=== PATIENT | male | born 2005 | race Caucasian/White ===

== ENCOUNTER → 2023-06-06 | Emergency (ER) | payer OTHER, SELFPAY ==
--- NOTE | 2023-06-06 19:29 | ER ---
[facility]urse[facility] Name: J Luis Sanchez Age: 18 yrs Sex: Male : 2005 Arrival Date: 06/06/2023 Time: 17:54 Bed IW1 Private MD: Diagnosis: Acute tonsillitis, unspecified Presentation: 06/05 18:00 Chief complaint: Sore throat, cough, congestion, and fever x 4 days. Coronavirus hb screen: Client presents with at least one sign or symptom that may indicate coronavirus-19. Provider contacted for isolation considerations. Ebola Screen: No symptoms or risks identified at this time. Initial Sepsis Screen: Does the patient meet any 2 criteria? HR > 90 bpm. No. Patient's initial sepsis screen is negative. Does the patient have a suspected source of infection? No. Patient's initial sepsis screen is negative. Risk Assessment: Do you want to hurt yourself or someone else? Patient reports no desire to harm self or others. Onset of symptoms was June 02, 2023. 18:00 Method Of Arrival: Ambulatory hb 18:00 Acuity: ALLYSON 4 hb Triage Assessment: 18:02 General: Appears in no apparent distress. Behavior is calm, cooperative. Pain: Pain hb currently is 7 out of 10 on a pain scale. EENT: Reports sore throat. Neuro: Level of Consciousness is awake, alert, obeys commands, Oriented to person, place, time, situation. Cardiovascular: Patient's skin is warm and dry. Respiratory: Respiratory effort is even, unlabored, Respiratory pattern is regular, symmetrical. 18:03 Respiratory: Reports cough that is. hb Historical: - Allergies: 18:02 No Known Allergies; hb - Home Meds: 18:02 None [Active]; hb - PMHx: 18:02 Depression; hb - PSHx: 18:02 None; hb - Immunization history:: Adult Immunizations up to date. - Social history:: Smoking status: Patient denies any tobacco usage or history of. Screenin:39 [facility] ED Fall Risk Assessment (Adult) History of falling in the last 3 months, cm10 including since admission No falls in past 3 months (0 pts) Confusion or Disorientation No (0 pts) Intoxicated or Sedated No (0 pts) Impaired Gait No (0 pts) Mobility Assist Device Used No (0 pt) Altered Elimination No (0 pt) Score/Fall Risk Level 0 - 2 = Low Risk Oriented to surroundings, Maintained a safe environment, Hourly rounding (assess needs \T\ fall precautionary measures) done. Abuse screen: Denies threats or abuse. Denies injuries from another. Nutritional screening: No deficits noted. Tuberculosis screening: No symptoms or risk factors identified. Vital Signs: 18:00 BP 133 / 93; Pulse 100; Resp 16; Temp 98.4(TE); Pulse Ox 100% on R/A; Weight 65.77 kg; hb Height 6 ft. 0 in. ; Pain 7/10; 18:00 Body Mass Index 19.67 (65.77 kg, 182.88 cm) hb 18:00 Pain Scale: Adult hb ED Course: 17:58 Patient arrived in ED. ae5 17:58 Dolores Cline FNP-C is [facility]. kb 17:58 Stewart Alexandre MD is Attending Physician. kb 18:02 Triage completed. hb 18:02 Arm band placed on. hb 18:09 Strep Sent. hb 18:09 COVID-19 SARS RT PCR Sent. hb 18:09 Flu Sent. hb 19:39 Patient has correct armband on for positive identification. Provided Education on: cm10 Follow-up instructions. 19:39 No provider procedures requiring assistance completed. Patient did not have IV access cm10 during this emergency room visit. Administered Medications: No medications were administered Medication: 19:39 VIS not applicable for this client. cm10 Outcome: 19:29 Discharge ordered by MD. kb 19:39 Discharged to home ambulatory, cm10 19:39 Condition: good 19:39 Discharge instructions given to patient, Instructed on discharge instructions, follow up and referral plans. medication usage, Demonstrated understanding of instructions, follow-up care, medications, Prescriptions given X 1, 19:40 Patient left the ED. cm10 Signatures: Dolores Cline FNP-C FNP-Ckb Baxter, Heather, RN RN hb Martinez, Clarissa, RN RN cm10 Espinosa, Alexia ae5 Corrections: (The following items were deleted from the chart) 18:03 18:02 Neuro: Level of Consciousness is awake, alert, obeys commands, Oriented to hb person, place, time, situation, hb
--- NOTE | 2023-06-06 19:29 | EDPHYS ---
Physician Documentation [facility] Name: J Luis Sanchez Age: 18 yrs Sex: Male : 2005 Arrival Date: 06/06/2023 Time: 17:54 Bed IW1 Private MD: ED Physician Stewart Alexandre HPI: 06/05 19:29 This 18 yrs old Male presents to ER via Ambulatory with complaints of Cough, Chest kb Congestion. 19:29 Patient is a 18-year-old male who presents for cough, congestion, sore throat and fever kb for 4 days. Denies chest pain or shortness of breath. States this happens about once a year due to his tonsils.. Historical: - Allergies: 18:02 No Known Allergies; hb - Home Meds: 18:02 None [Active]; hb - PMHx: 18:02 Depression; hb - PSHx: 18:02 None; hb - Immunization history:: Adult Immunizations up to date. - Social history:: Smoking status: Patient denies any tobacco usage or history of. ROS: 19:29 Constitutional: As per HPI kb Exam: 19:29 Constitutional: This is a well developed, well nourished patient who is awake, alert, kb and in no acute distress. Head/Face: Normocephalic, atraumatic. Cardiovascular: Regular rate Respiratory: Respirations even and unlabored. No increased work of breathing. Talking in full sentences Abdomen/GI: Soft, non-tender. No distention Skin: Warm, dry with normal turgor. Normal color. MS/ Extremity: Pulses equal, no cyanosis. Neurovascular intact. Full, normal range of motion. Neuro: Awake and alert, GCS 15, oriented to person, place, time, and situation. Moves all extremities. Normal gait. 19:29 ENT: Posterior pharynx: Airway: normal, no evidence of obstruction, Tonsils: bilaterally enlarged, with erythema, Uvula: normal, midline, Vital Signs: 18:00 BP 133 / 93; Pulse 100; Resp 16; Temp 98.4(TE); Pulse Ox 100% on R/A; Weight 65.77 kg; hb Height 6 ft. 0 in. ; Pain 7/10; 18:00 Body Mass Index 19.67 (65.77 kg, 182.88 cm) hb 18:00 Pain Scale: Adult hb MDM: 17:58 Patient medically screened. kb 19:30 Differential Diagnosis: Other Tonsillitis, strep, flu, COVID, URI. Data reviewed: vital kb signs, nurses notes. Counseling: I had a detailed discussion with the patient and/or guardian regarding the historical points, exam findings, and any diagnostic results supporting the discharge/admit diagnosis, lab results, the need for outpatient follow up, a family practitioner, to return to the emergency department if symptoms worsen or persist or if there are any questions or concerns that arise at home. 06/05 18:02 Order name: Flu; Complete Time: 18:36 kb 06/05 18:02 Order name: COVID-19 SARS RT PCR; Complete Time: 18:51 kb 06/05 18:02 Order name: Strep; Complete Time: 18:36 kb 06/05 18:35 Order name: Throat Culture EDMS Administered Medications: No medications were administered Disposition Summary: 06/06/23 19:29 Discharge Ordered Notes: Location: Home kb Condition: Stable kb Diagnosis - Acute tonsillitis, unspecified kb Followup: kb - With: Private Physician - When: 2 - 3 days - Reason: Recheck today's complaints, Continuance of care, Re-evaluation by your physician Followup: kb - With: Emergency Department - When: As needed - Reason: Worsening of condition Discharge Instructions: - Discharge Summary Sheet kb - Tonsillitis, Wawq-ko-Ahdw kb Forms: - Medication Reconciliation Form kb - Thank You Letter kb - Antibiotic Education kb - Prescription Opioid Use kb - Patient Portal Instructions kb - Leadership Thank You Letter kb - Work release form cm10 Prescriptions: - Amoxicillin 875 mg Oral Tablet - take 1 tablet ORAL route every 12 hours for 10 days; 20 tablet; Refills: 0, kb Product Selection Permitted Signatures: Dispatcher [employer] EDDolores Alcantar, PAUL RUTLEDGE-Tameka Pablo, RN RN hb
[2023-06-06 19:53] VITALS: BP 133/93; TEMP 98.4; O2SAT 100
== END ==
LOC: ER 17:54
DX: J03.90 Acute tonsillitis, unspecified (principal); Z11.52 Encounter for screening for COVID-19
CPT/HCPCS: 87070; 87081; 87635; 87804

== ENCOUNTER 2023-09-15 23:43 | Emergency (ER) | payer SELFPAY ==
--- OUTSIDE RECORDS SUMMARY | 2023-09-15 23:45 | XMS REPORT | Continuity of Care Document ---
Author Name Unknown Address [address] [facility] [address] [place] [address] [facility] Address [address] [facility] [address] [place] [address] Care Team Providers Care Compliance Lead Name Role Phone NO, PCP Primary Care Physician Unavailab aMggi Newman MD Attending Clinician SERGIO YAN Attending Clinician Unavailable Sami Curiel Attending Clinician UnavailMAGGI Skelton Attending Clinician Unavailable Alonso Attending Clinician Unavailable SERGIO YAN Admitting Clinician Unavailable Alonso Admitting Clinician Unavailable Payers Payer Name Policy Type Policy Number Effective Date Expirati on Date Source 22 C [id number] BCBS [facility] OUT [facility] STATE [id number] 2019 00:00:00 [place] [facility] [id number] 2019 00:00:00 Problems Condition Name Condition Details Condition Category Status Onset Date Resolution Date Last Treatment Date Treating Clinician Comments Source No known active problems No known active problems Disease [facility] Allergies, Adverse Reactions, Alerts Allergy Name Allergy Type Status Severity Reaction(s) Onset Date Inactive Date Treating Clinician Comments Source No Known Allergie s NA Active 10-09 23:40: 23 [facility] No Known Allergie s NA Active 10-06 10:55: 35 [facility] No Known Allergie s NA Active 10-06 10:02: 31 [facility] ([facility]) No Known Allergie s NA Active 10-06 09:21: 42 [facility] ([facility]) sulfamet hoxazole DA Active U Rash 10-12 00:00: 00 [facility] trimetho prim DA Active U Rash 10-12 00:00: 00 [facility] Bee Sting / Venom Propensi ty to adverse reaction s Active Swelling 07-21 00:00: 00 [facility] BEE STING / VENOM DRUG INGREDI Active SOB 07-21 00:00: 00 [facility] NO KNOWN ALLERGIE S Drug Class Active [facility] Social History Social Habit Start Date Stop Date Quantity Comments Source [facility] to SARS-CoV-2 (event) 2021-07-11 00:00:00 2021-07-21 19:29:00 Not sure [facility] Sex assigned at 2005 00:00:00 2005 00:00:00 [facility] Smoking Status Start Date Stop Date Source Current Every Day Smoker [facility] Tobacco smoking consumption unknown [facility] Medications Ordered Medication Name Filled Medication Name Start Date Stop Date Current Medication? Ordering Clinician Indication Dosage Frequency Signature (SIG) Comments Components Source acetaminoph en ES 500 MG TABS acetaminoph en ES 500 MG TABS 10-06 10:06: 00 10-06 10:06 :00 No 500mg medication :acetamino phen ES 500 MG TABS|dose: 500.0 mg|route:O RAL|freque ncy:ONE TIME [facility] ([facility]) sulfamethox azole-trime thoprim 800-160 mg per tablet 07-21 00:00: 00 Yes [id number] 1{tbl} Take 1 tablet by mouth every 12 (twelve) hours. [facility] mupirocin 2 % ointment 07-21 00:00: 00 Yes [id number] Apply to area(s) 3 (three) times daily. [facility] azithromyci n 1 gram oral packet Take 1 packet every day by oral route for 1 day. azithromyci n 1 gram oral packet Take 1 packet every day by oral route for 1 day. No 1packet (s) Q1D azithromyc in 1 gram oral packet Take 1 packet every day by oral route for 1 day. [facility] Vital Signs Vital Name Observation Time Observation Value Comments S ource Systolic blood pressure 2021-07-22 00:32:00 116 mm[Hg] [facility] Diastolic blood pressure 2021-07-22 00:32:00 56 mm[Hg] [facility] Heart rate 2021-07-22 00:32:00 75 /min [facility] Body temperature 2021-07-22 00:32:00 36.78 Kiera [facility] Respiratory rate 2021-07-22 00:32:00 20 /min [facility] Body height 2021-07-22 00:32:00 182.9 cm [facility] Body weight 2021-07-22 00:32:00 68.04 kg [facility] BMI 2021-07-22 00:32:00 20.34 kg/m2 [facility] Body mass index (BMI) [Percentile] Per age and sex 2021-07-22 00:32:00 23.80 % [facility] Oxygen saturation in Arterial blood by Pulse oximetry 2021-07-22 00:32:00 97 /min [facility] BP Systolic 2020-06-12 00:00:00 118 mm[Hg] [facility] Body Weight 2020-06-12 00:00:00 2304 [oz_av] [facility] BP Diastolic 2020-06-12 00:00:00 74 mm[Hg] [facility] Height 2020-06-12 00:00:00 70 [in_i] [facility] BMI (Body Mass Index) 2020-06-12 00:00:00 20.7 kg/m2 [facility] Encounters Start Date/Time End Date/Time Encounter Type Admission Type Attending [facility] Care Facility Care Department Encounter ID Source 2022-09-06 08:57:13 Inpatient SPTP [facility] 627 [facility] 2022-08-16 10:21:28 Inpatient SPTP SPT 07 [facility] 2022-08-14 09:58:18 Inpatient SPTP [facility] 05 [facility] 2022-08-08 12:27:00 Inpatient SPTP [facility] 30 [facility] 2023-07-30 19:52:00 2023-07-30 20:15:00 Emergency Maggi Carney [facility] 1..840.114 [id number] [id number] [id number] [facility] 2022-10-06 14:21:00 2022-10-06 15:55:00 Emergency Department Patient Visit [facility] [id number] 2022-10-06 09:21:00 2022-10-06 10:55:00 Outpatient Encounter 1 YANSERGIO [facility] [id number]. [id number] [facility]) 2021-10-12 14:58:00 2021-10-12 15:19:00 Emergency Emergency TennilleSami shukla [facility] M[facility] [id number] [facility] 2021-07-21 19:35:00 2021-07-21 20:51:00 Emergency X MAGGI CARNEY [facility] ERT [id number] [facility] 2021-07-21 19:35:00 2021-07-21 20:51:00 Emergency Maggi Carney [facility] 1..840.114 350.1.13.10 4.2.7.2.686 [id number] [facility] 2020-06-13 11:18:00 2020-06-13 11:18:00 Outpatient Ruben_Shanice [facility] [id number] [facility] 2020-06-12 05:29:00 2020-06-12 05:29:00 Outpatient Zromy_Shanice [facility] [id number] [facility] 2020-06-12 00:00:00 2020-06-12 00:00:00 Juan Miranda MD: [address] [place] [address] [address], [place] [address] , Ph. [facility] [id number] [facility] Results Test Description Test Time Test Comments Results Resul t Comments Source CHEST 1 VIEW PORTABLE 2022-09-10 8 10:06:00 [facility] : 2005 Sex: M *[address] [address]VWVLVTUEVK IMAGING REPORTPatient Name: J LUIS WILKERSONDate of Service: [id number]: 19 Sex: M Order #: [id number] Room: QERDOB: 2005 X-Ray Number: [id number] Record Number: [id number] Hospital Number: [id number] Physician: Mani YAN Physician: IMELDA CRUZ -CHEST 1 VIEW PORTABLE 10/06/2022 9:57 AMHistory: Cough with feverComparisons: None Available.CHEST:FIND INGS:Heart size is normal.There is no focal lung consolidation.There is no definite pleural effusion or pneumothorax identified.IMPRESSIO N:No acute cardiopulmonary process.Electronical ly Signed By: Vincent Francisco M.D., 10/06/2022 10:03 AMLegally authenticated by NOLAN FIERRO 2022-10-06 10:03:53 Portable XR Chest Views AP 2022-09-10 8 10:03:53 ORDER 200: CHEST 1 VIEW PORTABLE (LOINC: 03248-7)ORDER DATE: October 06, 2022 2:26:00 PM [facility]) Streptococcus pyogenes DNA [Presence] in Stzgnn9270-03-47 10:00:[facility]INFLU[facility]ZA [id number] 09:59:00* Test Item Value Reference Range Interpretation Comme nts FLU A (test code = FLU A) NEGATIVE NEGATIVE FLU B (test code = FLU B) NEGATIVE NEGATIVE FLU INTERNAL POSITIVE CNTRL (test code = FLU IPC) PASS PASS INFLUENZA LOT # (test code = FLULOT) [id number] INFLUENZA EXPIRATION DATE (t est code = FLUEXP) 02-02-2025 Influenza virus A+B Ag [Presence] in Nose by [id number] 09:59:00* Test Item Value Reference Range Interpretation Comme [facility] Reagent Lot number (test cod e = 17739-6) [id number] N Expiration date (test code = 51670-3) 02-02-2025 N [facility])COVID SYMPTOMATIC ER [id number] 09:42:00* Test Item Value Reference Range Interpretation Comme nts CORONAVIRUS (COVID-19)BY PCR (test code = VPU89BYN) NEGATIVE SARS-CoV-2 (COVID-19) N gene [Presence] in Diip9747-45-62 09:42:00[facility] Notes Date/Time Note Provider Source 2023-07-30 19:52:19 7742-55-77Q87:52:19F ormatting of this note might be different from the original.Pt left Ambulatory accompanied by Deputy Turner Badge Number [id number] , AAOX3, gait steady. [address]-9Yzegejjim department PzjkRS5274-87-48Q94:52:40[facility] NoteTXT1.2.840.108828.1.13.104.2.7 .2.502584|[id number] for patient xkcy42676-6NhpbSSZXYGRWUJAZbmpcdxf d C-CDA narrative textUT04 Bailey [id number] 44CQLSEMPOTDJTRXQWQTAQWM6458-60-27 T19:52:401.2.840.212729.1.72.3.15| 1.2.840.545685.1.13.104.2.7.2.7278 [id number] [facility] 2023-07-30 19:41:00 5476-25-77D95:41:00F ormatting of this note might be different from the original.Pt arrived ambulatory via [employer] accompanied by Deputy uTrner Bad Number [id number] for blood draw 86670-2Cgfshupab department Triage vbjzYP0011-41-54B57:48:42[facility] Triage noteTXT1.2.840.057848.1.13.104.2.7 .2.196481|[id number] for patient wkmw75369-7Uzbtzbpci department NoteLNNARRATIVEFormatted C-CDA narrative [id number] J Hoot RNUT[address] Bailey [id number] 85QQALQHIIAQCGIGVIEHHURI0272-40-77 T19:48:421.2.840.070380.1.72.3.15| 1.2.840.315856.1.13.104.2.7.2.7278 [id number] Dee Ramirez RN [facility] 2022-10-06 10:03:53 BQffgcvgqnb114321AkD MeMdYCBABkBliZ kLfTum1zte0wtCc7pJvBsTQ3r65eD+ROSETTE XVYUwNWa3q9Jl9010-45-79G44:03:53Ba [address] [address] DIAGNOSTIC IMAGING REPORT Patient Name: J LUIS WILKERSONDate of Service: [id number]: 17 Sex: M Order #: [id number] Room: QERDOB: 2005 X-Ray Number: [id number] Record Number: [id number] Hospital Number: [id number] Physician: Mani YAN Physician: IMELDA CRUZ - CHEST 1 VIEW PORTABLE 10/06/2022 9:57 AMHistory: Cough with feverComparisons: None Available.CHEST:FINDINGS:Heart size is normal.There is no focal lung consolidation.There is no definite pleural effusion or pneumothorax identified.IMPRESSION:No acute cardiopulmonary process.Electronically Signed By: Vincent Francisco M.D., 10/06/2022 10:03 AM Legally authenticated by NOLAN FIERRO 2022-10-06 10:03:17OVNfbewxbuqhakrsfza00397WD ARIEL DENNYLHXAVZWSFMTOZHLCBD5859-01-43G53:03 :[id number], GBLATKAJNWGJTLTYYGC2693-34-24W49:0 6:15 VINCENT FRANCISCO NICOLE 2021-10-12 15:06:00 yp0TwYV6m91fnwBCn5lQ PNwXcef67uH1bG +GAiSKdiJo9T6hEoeZD59h+Ej9pnZ36434 -08-03T15:06:[address] [address] Emergency Department Document Signed Patient: J Luis Wilkerson Medical Record#: [id number] : 2005 Acct:[id number] Age/Sex: 16 / M Admit/Reg Date: 10/12/21 Loc: SETED Room: Report Number: [id number]: Sami Curiel MD Skin/Abscess/FB HPI - General Nursing note reviewed: Yes Source: patient Mode of arrival: ambulatory Limitations: no limitations Primary Care Provider: PCP,UNKNOWN - General Stated complaint: thumb infection - History of Present Illness HPI narrative: Patient reports redness and swelling and pain to the base of the right thumbnail. Patient reports he chews on his nails. He has had multiple paronychial infections in the past. (Eladio Paige) - Related Data Previous Rx's Medication Instructions Recorded cephalexin 500 mg capsule 500 mg PO TID #21 caps 10/12/21 Allergies Allergy/AdvReac Type Severity Reaction Status Date / Time sulfamethoxazole Allergy Rash Verified 10/12/21 15:06 [From Bactrim] trimethoprim [From Bactrim] Allergy Rash Verified 10/12/21 15:06 Review of Systems ROS: As noted in HPI or below. Constitutional: No fevers, chills Respiratory: No cough. No shortness of breath. Gastrointestinal: No nausea/vomiting. Musculoskeletal: Tenderness, erythema and swelling to the base of the right thumbnail. No drainage. Integumentary: As above. Otherwise skin is warm, dry, normal for skin coloration. Neurologic: No weakness, no headache. No seizures or tremors. Psychiatric: Normal memory, normal mood. (Eladio Paige) Physical Exam Physical Exam: General: Well groomed. No acute distress. Eye: EOMI, conjunctiva normal. No periorbital swelling or injury noted. HENT: Normocephalic, normal hearing. No injury or swelling noted. Neck: No tracheal deviation. No stridor. Range of motion normal. Lungs: No respiratory distress. Musculoskeletal: Erythema, tenderness and mild swelling to the base of the right thumbnail, consistent with paronychial infection Back: Normal range of motion. Skin: As above. Otherwise skin is warm, dry, normal for skin coloration Neurologic: Alert and oriented X4, no motor deficit, no sensory deficit. Normal gait. Psychiatric: Cooperative, appropriate mood, normal affect. (Eladio Paige) MDM/COURSE - MDM Medical Decision Making Narrative: 10/12/21 15:11 Differential diagnoses include: Right thumb paronychial infection I reviewed and agree with the nurse's notes. Vital signs reviewed. Patient discharged with a prescription for Keflex to take 3 times a day x7 days. Instructed to no longer chew on nails. The patients provisional diagnosis and plan of care were discussed. The patient and/or present family expressed understanding of the diagnosis and plan. Written instructions and appropriate follow-up information provided. The risks of medications administered and/or prescribed were discussed with the patient and/or family present. The patient understands their need and responsibility to obtain additional follow-up as instructed. (Eladio Paige) Discharge Plan - Discharge Clinical Impression: Paronychia of right thumb Disposition: Home or Self-Care Condition: Good Instructions: ED Paronychia of the Finger or Toe Prescriptions: New cephalexin 500 mg capsule 500 mg PO TID Qty: 21 RF: 0 Transmission Status: P[id number] Print Language: Tajik - Discharge Data Time Seen by Provider: 10/12/21 15:00 Dictated By: Eladio Paige NP Signed By: Eladio Paige NP 10/13/21 1113 DD/ 1506 TD/TT: 10/12/21 1506 Line Walker: SIN cc: PCPUNK* PCP,UNKNOWN MAYRA Physician DavmphfaxlhwnWAGBW68VudpguneOscar FraustoMichael2022- 10-12T15:06:00P.EDAVAvailable for patient glbaCGXYDVZCaDWZRJOm9760-67-42J20: 15:01 MCSETXm"
[2023-09-16] MEDS ORDERED: NALOXONE 0.4 MG/ML VIAL ONE ×2 (00:26→00:43)
[2023-09-16] MEDS ORDERED: NA CHLORIDE 0.9% 1,000 ML ONE (00:43)
[2023-09-16 00:55] LABS: Absolute Eosinophils 0.1 K/uL (0-0.5); Absolute Lymphocytes (CBC) 2.8 K/uL (0.7-4.9); Absolute Monocytes 1.4 K/uL (0.1-1.3); Absolute Neutrophil 5.7 K/uL (1.8-8.0); Basophils % 0.3 % (0-1.3); Eosinophils % 1.1 % (0-4.4); Hematocrit 41.7 % (39.6-49.0); Hemoglobin 14.2 g/dL (13.6-17.9); Lymphocytes % 27.9 % (15.3-44.8); MCH 30.5 pg (27.0-35.0); MCHC 33.9 g/dL (32.0-36.0); MCV 89.8 fL (80-100); MPV 7.9 fL (7.6-11.3); Monocytes % 14.1 % (3.3-12.3); Neutrophils % 56.6 % (41.7-73.7); Platelets 244 thou/uL (152-406); RBC Red Blood Cell Count 4.65 M/uL (4.33-5.43); Red Cell Distribution Width 12.8 % (12.1-15.2)
--- NOTE | 2023-09-16 01:25 | EDPHYS ---
Physician Documentation [facility] Name: J Luis Sanchez Age: 18 yrs Sex: Male : 2005 Arrival Date: 09/15/2023 Time: 23:43 Bed 7 Private MD: ED Physician Stewart Alexandre HPI: 09/15 00:58 This 18 yrs old Male presents to ER via EMS with complaints of Overdose. leanne 00:58 The patient presents to the emergency department after a known overdose, that was leanne intentional. Context: Method: the patient has a confirmed or suspected ingestion, amphetamines. Associated signs and symptoms: Pertinent positives: apnea. Severity of symptoms: At their worst the symptoms were moderate severe in the emergency department the symptoms have improved moderately. The patient has not experienced similar symptoms in the past. Historical: - Allergies: 00:11 No Known Allergies; tm6 - PMHx: 00:11 Depression; tm6 - PSHx: 00:11 None; tm6 - Immunization history:: Client reports receiving the 2nd dose of the Covid vaccine. - Infectious Disease History:: Denies. - Social history:: Smoking status: Patient reports the use of cigarette tobacco products, smokes one-half pack cigarettes per day, Patient/guardian denies using alcohol, street drugs. ROS: 00:59 Constitutional: Negative for fever, chills, and weight loss, Eyes: Negative for injury, leanne pain, redness, and discharge, ENT: Negative for injury, pain, and discharge, Neck: Negative for injury, pain, and swelling, Cardiovascular: Negative for chest pain, palpitations, and edema, Respiratory: Negative for shortness of breath, cough, wheezing, and pleuritic chest pain, Abdomen/GI: Negative for abdominal pain, nausea, vomiting, diarrhea, and constipation, Back: Negative for injury and pain, : Negative for injury, bleeding, discharge, and swelling, MS/Extremity: Negative for injury and deformity, Skin: Negative for injury, rash, and discoloration, Psych: Negative for depression, anxiety, suicide ideation, homicidal ideation, and hallucinations, Allergy/Immunology: Negative for hives, rash, and allergies, Endocrine: Negative for neck swelling, polydipsia, polyuria, polyphagia, and marked weight changes, Hematologic/Lymphatic: Negative for swollen nodes, abnormal bleeding, and unusual bruising, 00:59 Neuro: Positive for altered mental status, Exam: 00:59 Constitutional: This is a well developed, well nourished patient who is awake, alert, leanne and in no acute distress. Head/Face: Normocephalic, atraumatic. Eyes: Pupils equal round and reactive to light, extra-ocular motions intact. Lids and lashes normal. Conjunctiva and sclera are non-icteric and not injected. Cornea within normal limits. Periorbital areas with no swelling, redness, or edema. ENT: Nares patent. No nasal discharge, no septal abnormalities noted. Tympanic membranes are normal and external auditory canals are clear. Oropharynx with no redness, swelling, or masses, exudates, or evidence of obstruction, uvula midline. Mucous membranes moist. Neck: Trachea midline, no thyromegaly or masses palpated, and no cervical lymphadenopathy. Supple, full range of motion without nuchal rigidity, or vertebral point tenderness. No Meningismus. Chest/axilla: Normal chest wall appearance and motion. Nontender with no deformity. No lesions are appreciated. Cardiovascular: Regular rate and rhythm with a normal S1 and S2. No gallops, murmurs, or rubs. Normal PMI, no JVD. No pulse deficits. Respiratory: Lungs have equal breath sounds bilaterally, clear to auscultation and percussion. No rales, rhonchi or wheezes noted. No increased work of breathing, no retractions or nasal flaring. Abdomen/GI: Soft, non-tender, with normal bowel sounds. No distension or tympany. No guarding or rebound. No evidence of tenderness throughout. Back: No spinal tenderness. No costovertebral tenderness. Full range of motion. Male : Normal genitalia with no discharge or lesions. Skin: Warm, dry with normal turgor. Normal color with no rashes, no lesions, and no evidence of cellulitis. MS/ Extremity: Pulses equal, no cyanosis. Neurovascular intact. Full, normal range of motion. Psych: Awake, alert, with orientation to person, place and time. Behavior, mood, and affect are within normal limits. 00:59 Neuro: Orientation: is normal, Mentation: slow to respond, Memory: is normal, appropriate for stated age, no acute changes, Cranial nerves: grossly normal, is grossly normal based on the patient's age, Cerebellar function: is grossly normal, is grossly normal based on the patient's age, no acute changes, Motor: is normal, Sensation: is normal, Gait: is steady, Babinski testing is normal, seizure activity, is not displayed by the patient, 03:00 ECG was reviewed by the Attending Physician. [facility] Vital Signs: 00:08 BP 140 / 105; Pulse 85; Resp 22; Temp 97.5(TE); Pulse Ox 98% on R/A; Weight 68.95 kg; tm6 Height 6 ft. 0 in. ; Pain 0/10; 00:15 BP 107 / 72; Pulse 77; Resp 9 S; Pulse Ox 95% on R/A; ha1 00:35 Pulse 89; Resp 18 S; Pulse Ox 100% on R/A; ha1 00:08 Body Mass Index 20.61 (68.95 kg, 182.88 cm) tm6 00:08 Pain Scale: Adult tm6 MDM: 00:16 Patient medically screened. [facility] 02:59 Differential diagnosis: Ingestion/exposure to UNK hypoglycemia. Data reviewed: vital [facility] signs, nurses notes. Consideration of Admission/Observation Escalation of care including admission/observation considered. I considered the following discharge prescriptions or medication management in the emergency department Medications were administered in the Emergency Department. See MAR. Independent interpretation of the following test(s) in the Emergency Department EKG: See my EKG interpretation above. Test considered but Not performed: CT: NO CT HEAD. Historians other than the Patient: EMS: EMS WELL INFORMED. Care significantly affected by the following chronic conditions: SUBSTANCE ABUSE, DEPRESSION. 09/15 00:17 Order name: Acetaminophen; Complete Time: 03:00 [facility] 09/15 00:17 Order name: Basic Metabolic Panel; Complete Time: 03:00 [facility] 09/15 00:17 Order name: CBC with Diff; Complete Time: 03:00 [facility] 09/15 00:17 Order name: ETOH Level; Complete Time: 03:00 [facility] 09/15 00:17 Order name: Hepatic Function; Complete Time: 03:00 [facility] 09/15 00:17 Order name: PT-INR; Complete Time: 03:00 [facility] 09/15 00:17 Order name: Ptt, Activated; Complete Time: 03:00 [facility] 09/15 00:17 Order name: Salicylate; Complete Time: 03:00 [facility] 09/15 00:17 Order name: EKG; Complete Time: 00:18 [facility] 09/15 00:17 Order name: EKG - Nurse/Tech; Complete Time: 00:39 [facility] 09/15 00:17 Order name: IV Saline Lock; Complete Time: 00:39 [facility] 09/15 00:17 Order name: Labs collected and sent; Complete Time: 00:39 [facility] 09/15 00:17 Order name: Suicide Screening ([place]); Complete Time: 00:39 [facility] EC:00 Rate is 66 beats/min. Rhythm is regular. QRS [place] is Normal. MT interval is normal. QRS leanne interval is normal. QT interval is normal. No Q waves. T waves are Normal. No ST changes noted. Clinical impression: Normal ECG and No evidence of ischemia. Interpreted by me. Reviewed by me. Administered Medications: 00:27 Drug: Naloxone IVP 0.4 mg IVP once Route: IVP; Site: left antecubital; ha1 00:30 Drug: NS 0.9% IV 1000 ml IV at 1 bolus Per protocol; 1000 mL bolus Route: IV; Rate: 1 ha1 bolus; Site: left antecubital; 01:31 Not Given (Physician Discretion): naloxone0.4 mg IVP once; repeat if needed ha1 Disposition Summary: 09/16/23 01:25 Discharge Ordered Notes: Location: Home leanne Problem: new leanne Symptoms: have improved leanne Condition: Stable leanne Diagnosis - Adverse effect of other drugs, medicaments and biological substances leanne - Alcohol abuse with intoxication leanne Followup: leanne - With: Private Physician - When: 1 - 2 days - Reason: Recheck today's complaints, Continuance of care, Re-evaluation by your physician Discharge Instructions: - Discharge Summary Sheet leanne - Alcohol Intoxication leanne - Substance Use Disorder leanne - Alcohol Intoxication, [id number] leanne - Substance Use Disorder and Mental Illness leanne - Supporting Someone With Substance Use Disorder leanne Forms: - Medication Reconciliation Form leanne - Antibiotic Education leanne - Prescription Opioid Use leanne - Patient Portal Instructions leanne - Leadership Thank You Letter leanne Signatures: Dispatcher [employer] Stewart San MD MD cha Ayala, Heidy, RN RN ha1 Heather Hampton PA-C PAShaista Benavidez RN RN tm6
--- NOTE | 2023-09-16 01:25 | ER ---
Nurse's Notes [facility] Name: J Luis Sanchez Age: 18 yrs Sex: Male : 2005 Arrival Date: 09/15/2023 Time: 23:43 Bed 7 Private MD: Diagnosis: Adverse effect of other drugs, medicaments and biological substances;Alcohol abuse with intoxication Presentation: 09/15 00:08 Chief complaint: EMS states: patient found unresponsive at friend's house. Upon EMS tm6 arrival, patient still unresponsive and cyanotic. 2mg narcan given nasally, as well as 250mL NS IV. Patient experiencing visual hallucinations. Coronavirus screen: Vaccine status: Patient reports receiving the 2nd dose of the covid vaccine. Ebola Screen: Patient negative for fever greater than or equal to 101.5 degrees Fahrenheit, and additional compatible Ebola Virus Disease symptoms Patient denies exposure to infectious person. Patient denies travel to an Ebola-affected area in the 21 days before illness onset. No symptoms or risks identified at this time. Initial Sepsis Screen: Does the patient meet any 2 criteria? No. Patient's initial sepsis screen is negative. Does the patient have a suspected source of infection? No. Patient's initial sepsis screen is negative. Risk Assessment: Do you want to hurt yourself or someone else? Patient reports no desire to harm self or others. Onset of symptoms was September 16, 2023. 00:08 Method Of Arrival: EMS: [facility] tm6 00:08 Acuity: [place] 2 tm6 Triage Assessment: 00:11 General: Appears in no apparent distress. Behavior is cooperative, restless. Pain: tm6 Denies pain. EENT: No signs and/or symptoms were reported regarding the EENT system. Neuro: Level of Consciousness is awake, alert, obeys commands, confused, Oriented to person, place, patient experiencing visual hallucinations. Cardiovascular: Patient's skin is warm and dry. Respiratory: Airway is patent Respiratory effort is even, unlabored, Respiratory pattern is regular, symmetrical. GI: No signs and/or symptoms were reported involving the gastrointestinal system. Abdomen is flat, non-distended. : No signs and/or symptoms were reported regarding the genitourinary system. Derm: No signs and/or symptoms reported regarding the dermatologic system. Musculoskeletal: No signs and/or symptoms reported regarding the musculoskeletal system. Historical: - Allergies: 00:11 No Known Allergies; tm6 - PMHx: 00:11 Depression; tm6 - PSHx: 00:11 None; tm6 - Immunization history:: Client reports receiving the 2nd dose of the Covid vaccine. - Infectious Disease History:: Denies. - Social history:: Smoking status: Patient reports the use of cigarette tobacco products, smokes one-half pack cigarettes per day, Patient/guardian denies using alcohol, street drugs. Screenin:12 [facility] ED Fall Risk Assessment (Adult) History of falling in the last 3 months, tm6 including since admission No falls in past 3 months (0 pts) Confusion or Disorientation Yes (5 pts) Intoxicated or Sedated Yes (3 pts) Impaired Gait No (0 pts) Mobility Assist Device Used No (0 pt) Altered Elimination No (0 pt) Score/Fall Risk Level 3 or more points = High Risk Oriented to surroundings, Maintained a safe environment, Educated pt \\T\\ family on fall prevention, incl call for assistance when getting out of bed. Abuse screen: Denies threats or abuse. Denies injuries from another. Nutritional screening: No deficits noted. Tuberculosis screening: No symptoms or risk factors identified. Assessment: 00:12 Reassessment: see triage assessment. tm6 00:24 Reassessment:. General: Behavior is RESPONSIVE TO PAINFUL STIMULI NOTIFIED CARE ha1 PROVIDER . 00:40 Reassessment: AWAKE STATED" I AM LIVING NO MATTER WHAT" PATIENT REMOVED IV. AND STATED ha1 TO WALK OUT OF THE ROOM. DR. BURCIAGA, CHARGE NURSE FOZIA NOTIFIED. 00:50 Reassessment: PROVIDED EDUCATION ON THE NEED TO RECEIVE MEDICAL CARE. Cardiovascular: ha1 Capillary refill < 3 seconds Patient's skin is warm and dry. Respiratory: Airway is patent Respiratory effort is even, unlabored, Respiratory pattern is regular, symmetrical. Musculoskeletal: Circulation, motion, and sensation intact. Range of motion: intact in all extremities. Overdose: 00:40 [place] Suicide Severity Screening: "In the past month, have you wished you were ha1 or wished you could go to sleep and not wake up?" Patient responds "no." "In the past month, have you actually had any thoughts of killing yourself?" Patient responds "no." "In your lifetime, have you ever done anything, started to do anything, or prepared to do anything to end your life?" Patient responds "no.". 01:00 [place] Suicide Severity Screening: "In the past month, have you wished you were ha1 or wished you could go to sleep and not wake up?" Patient responds "no." "In the past month, have you actually had any thoughts of killing yourself?" Patient responds "no.". 01:39 [place] Suicide Severity Screening:. ha1 Vital Signs: 00:08 BP 140 / 105; Pulse 85; Resp 22; Temp 97.5(TE); Pulse Ox 98% on R/A; Weight 68.95 kg; tm6 Height 6 ft. 0 in. ; Pain 0/10; 00:15 BP 107 / 72; Pulse 77; Resp 9 S; Pulse Ox 95% on R/A; ha1 00:35 Pulse 89; Resp 18 S; Pulse Ox 100% on R/A; ha1 00:08 Body Mass Index 20.61 (68.95 kg, 182.88 cm) tm6 00:08 Pain Scale: Adult 6 ED Course: 00:08 Patient arrived in ED. tm6 00:11 Triage completed. tm6 00:11 Arm band placed on right wrist. tm6 00:12 Patient has correct armband on for positive identification. Bed in low position. Call tm6 light in reach. Side rails up X2. Provided Education on: use of call graff. Client placed on continuous cardiac and pulse oximetry monitoring. NIBP monitoring applied. paediatric physiotherapist on. Pulse ox on. NIBP on. Noise minimized. Warm blanket given. 00:12 Maintain EMS IV. Dressing intact. Good blood return noted. Site clean \\T\\ dry. Gauge \\T\\ tm 6 site: 20g LAC. 00:16 Stewart Burciaga MD is Attending Physician. leanne 00:39 Acetaminophen Sent. ha1 00:39 Basic Metabolic Panel Sent. ha1 00:39 CBC with Diff Sent. ha1 00:39 ETOH Level Sent. ha1 00:39 Hepatic Function Sent. ha1 00:39 PT-INR Sent. ha1 00:39 Ptt, Activated Sent. ha1 00:39 Salicylate Sent. ha1 01:39 No provider procedures requiring assistance completed. IV discontinued, intact, ha1 bleeding controlled, No redness/swelling at site. Pressure dressing applied. Administered Medications: 00:27 Drug: Naloxone IVP 0.4 mg IVP once Route: IVP; Site: left antecubital; ha1 00:30 Drug: NS 0.9% IV 1000 ml IV at 1 bolus Per protocol; 1000 mL bolus Route: IV; Rate: 1 ha1 bolus; Site: left antecubital; 01:31 Not Given (Physician Discretion): naloxone0.4 mg IVP once; repeat if needed ha1 Medication: 00:12 VIS not applicable for this client. tm6 Outcome: 01:25 Discharge ordered by . leanne 01:30 Discharged to home ambulatory, ha1 01:30 Condition: improved 01:30 Discharge instructions given to patient, Instructed on discharge instructions, Demonstrated understanding of instructions, follow-up care, 01:40 Patient left the ED. ha1 03:01 Patient left the ED. vc1 Signatures: Stewart Burciaga MD MD cha Calcote, Vanessa RN RN vc1 Rubina Sims RN RN 1 Shaista Luis RN RN tm6
[2023-09-16 01:27] LABS: PT Prothrombin Time 13.6 SECONDS (9.4-12.5); PTT, Activated Partial Thromb 31.3 SECONDS (24.3-36.9); Protime INR 1.24
[2023-09-16 02:05] LABS: ALT/SGPT 23 U/L (16-61); AST/SGOT 16 U/L (15-37); Albumin 4.5 g/dL (3.4-5.0); Albumin/Globulin Ratio 1.2 (1.1-1.8); Alkaline Phosphatase 77 U/L (45-117); Anion Gap 8.6 mEq/L (5.0-15.0); BUN Blood Urea Nitrogen 22 mg/dL (7-18); Bicarbonate 28 mEq/L (21-32); Bilirubin Direct 0.2 mg/dL (0-0.2); Bilirubin Indirect, Calculated 0.4 mg/dL (0.2-0.8); Bilirubin Total 0.6 mg/dL (0.2-1.0); Globulin 3.8 g/dL (2.3-3.5); Glomerular Filtration Rate 85 ml/min (=/>90); Glucose Level 95 mg/dL (74-106); Potassium 3.6 mEq/L (3.5-5.1); Protein, Total 8.3 g/dL (6.4-8.2); Sodium Level 137 mEq/L (136-145)
[2023-09-16 02:10] VITALS: BP 107/72; TEMP 97.5; O2SAT 100
--- NOTE | 2023-09-18 09:04 | EKG ---
Test Date: 2023-09-16 Test Time: 00:43:12 [place] Block Setter: JACKSON MEASUREMENT RESULTS: Intervals: Rate: 66 DE: 124 QRSD: 96 QT: 354 QTc: 371 [place]: P: 71 DE: 124 QRS: 83 T: 68 INTERPRETIVE STATEMENTS: Normal sinus rhythm with sinus arrhythmia Normal ECG No previous ECG available for comparison Electronically Signed On 09-18-23 09:02:53 CDT by Jules Shah
== END 2023-09-16 03:01 | disposition home or self-care (01) ==
LOC: ER 23:43
DX: R41.82 Altered mental status, unspecified (principal); T50.995A Adverse effect of other drugs, medicaments and biological substances, initial encounter; F10.129 Alcohol abuse with intoxication, unspecified
CPT/HCPCS: 36415; 80048; 80076; 80143; 80179; 82077; 85025; 85610; 85730; 93005; 96374; 99291; J2310; J7030